=== PATIENT | female | born 2000 | race African-American/Black ===

== ENCOUNTER 2021-05-20 09:25 | Emergency (ER) | payer BC ==
[2021-05-20 09:45] VITALS: BP 125/81; PULSE 94; TEMP 98.1; BMI 20.5
== END 2021-05-20 10:32 | disposition home or self-care (01) ==
LOC: JER 09:25
DX: J11.1 Influenza due to unidentified influenza virus with other respiratory manifestations (principal)
CPT/HCPCS: 99283-25